=== PATIENT | male | born 1990 | race American Indian/Alaskan Native ===

== ENCOUNTER 2021-07-13 16:03 | Emergency (ER) | payer MEDICAID | END 2021-07-13 16:58 | disposition home or self-care (01) | LOC: FB.ED 16:03 | DX: L03.90 Cellulitis, unspecified (principal); Z72.0 Tobacco use | CPT/HCPCS: 99281; 99282 ==

== ENCOUNTER 2021-07-14 03:47 | Emergency (ER) | payer MEDICAID ==
[2021-07-14] MEDS ORDERED: OLANZapine 10 MG Vial IM ONE (05:58)
[2021-07-14] MEDS ORDERED: LORazepam 2 MG/ML SDV IM STA (05:59)
== END 2021-07-14 06:10 | disposition home or self-care (01) ==
LOC: FB.ED 03:47
DX: F19.10 Other psychoactive substance abuse, uncomplicated (principal)
CPT/HCPCS: 36415; 80053; 80307; 81001; 84439; 84443; 85025; 96372; 99282; 99285; J2060; J3490

== ENCOUNTER 2022-10-28 15:41 | Emergency (ER) | payer MEDICAID, OTHER ==
[2022-10-28 16:16] LABS: BASOPHILS ABSOLUTE AUTO 0.1 x10-3/uL (0.0-0.3); BASOPHILS PERCENT AUTO 0.6 % (0.3-3.8); EOSINOPHILS ABSOLUTE AUTO 0.2 x10-3/uL (0.0-0.6); EOSINOPHILS PERCENT AUTO 2.4 % (0.1-6.8); HEMATOCRIT 44.8 % (38.3-50.1); HEMOGLOBIN 15.3 g/dL (12.9-17.7); LYMPHOCYTES ABSOLUTE AUTO 2.2 x10-3/uL (0.5-4.5); LYMPHOCYTES PERCENT AUTO 23.3 % (15.8-45.3); MEAN CORPUSCULAR HEMOGLOBIN 27.5 pg (27.0-33.3); MEAN CORPUSCULAR VOLUME 80.7 fL (80.8-98.7); MEAN PLATELET VOLUME 7.8 fL (6.7-11.0); MONOCYTES ABSOLUTE AUTO 0.7 x10-3/uL (0.0-1.2); MONOCYTES PERCENT AUTO 7.2 % (5.5-15.2); NEUTROPHILS ABSOLUTE AUTO 6.4 x10-3/uL (1.7-6.9); NEUTROPHILS PERCENT AUTO 66.5 % (40.3-71.8); PLATELET COUNT,PLT 264 x10(3)uL (117-477); RED BLOOD CELL COUNT 5.56 x10(6)uL (3.90-5.90); WHITE BLOOD CELL COUNT,WBC 9.6 x10-3/uL (3.2-10.1)
[2022-10-28 16:23] LABS: BLOOD UREA NITROGEN,BUN 14 mg/dL (7-18); BUN/CREATININE RATIO 12.7 (9-20); CALCIUM 9.1 mg/dL (8.6-10.2); CARBON DIOXIDE,CO2 28 mmol/L (21-32); CHLORIDE,CL 104 mmol/L (100-110); CREATININE 1.1 mg/dL (0.70-1.30); EST CRCL DRUG DOSING (CG) 108.95 mL/min; ESTIMATED GFR 91 mL/min (>60); GLUCOSE RANDOM 121 mg/dL (80-116); SODIUM,NA 139 mmol/L (135-145)
[2022-10-28 16:29] LABS: ALANINE AMINOTRANSFERASE,ALT 59 U/L (12-36); ALBUMIN 3.7 g/dL (3.5-5.2); ALKALINE PHOSPHATASE 122 IU/L (56-112); ASPARTATE AMNIOTRANSFERASE,AST 28 IU/L (5-25); BILIRUBIN TOTAL 0.7 mg/dL (0.1-1.3); PROTEIN TOTAL,TP 7.6 g/dL (6.0-8.0)
[2022-10-28 16:33] LABS: AMPHETAMINES SCREEN, URINE NEGATIVE (NEGATIVE); BARBITURATE SCREEN,URINE NEGATIVE (NEGATIVE); BENZODIAZEPINES SCREEN,URINE NEGATIVE (NEGATIVE); BUPRENORPHINE SCREEN,URINE NEGATIVE (NEGATIVE); METHADONE SCREEN, URINE NEGATIVE (NEGATIVE); METHAMPHETAMINE SCREEN, URINE NEGATIVE (NEGATIVE); OXYCODONE SCREEN,URINE NEGATIVE (NEGATIVE); PROPOXYPHENE SCREEN,URINE NEGATIVE (NEGATIVE); THC SCREEN,URINE NEGATIVE (NEGATIVE)
[2022-10-28] MEDS ORDERED: Sulfamethoxazole/Trimethoprim 800-160 MG Tab PO ONE (17:24)
[2022-10-28] MEDS ORDERED: Amoxicillin/Clavulanate K 875-125 MG Tab PO ONE (17:24)
== END 2022-10-28 17:55 | disposition home or self-care (01) ==
LOC: FB.ED 15:41
DX: L03.116 Cellulitis of left lower limb (principal); L03.115 Cellulitis of right lower limb; L97.511 Non-pressure chronic ulcer of other part of right foot limited to breakdown of skin; F17.209 Nicotine dependence, unspecified, with unspecified nicotine-induced disorders
CPT/HCPCS: 36415; 73630-50; 80053; 80307; 83605; 83735; 85025; 86140; 87070; 87205; 99283; A9270-GY